=== PATIENT | male | born 1960 | race Caucasian/White ===

== ENCOUNTER 2018-10-05 00:14 | Emergency (ER) | payer MEDICARE, SELFPAY ==
[2018-10-05] VITALS (7 sets, daily range): BP systolic 107–131; BP diastolic 66–85; PULSE 82–109; RESP 16–20; TEMP 36.3–36.4; O2SAT 94–99; BMI 22.1
--- NOTE | 2018-10-05 00:49 | RAD_ITS ---
STUDY: X-RAY CHEST REASON FOR EXAM: Male, 58 years old. Cough. TECHNIQUE: PA and lateral views of the chest. COMPARISON: Prior comparison studies are not available for review at this time. FINDINGS: Cardiac monitoring leads are present. The lungs are hyperexpanded. There appear to be of bilateral heterogeneous airspace consolidations. There also may be some nodules are particularly noticeable in the right upper lobe. There is also a large right basilar pulmonary nodule measuring up to 4.3 cm in greatest dimension. The pancreas be a small left-sided pleural effusion. There appears to be bilateral apical pleural thickening. There is mild cardiac enlargement. There is prominence of left hilar area possibly representing sequela of lymphadenopathy. There is prominence of the pulmonary hilar arteries without peripheral pulmonary vascular congestion. There is atherosclerotic calcification of the aortic arch with tortuosity. There is demineralization of the osseous structures. There is increased attenuation within the lower thoracic vertebral body that could represent sequela metastatic disease. Normal visualized ribs, clavicles, and shoulders. There is moderate pectus excavatum. There is no demonstrated abnormality of the visualized soft tissue structures of the upper abdomen. RAD/Chest PA and Lateral IMPRESSION: 1. Apparent multiple right-sided pulmonary masses and nodules possibly representing primary bronchogenic carcinoma. 2. Probable hilar lymphadenopathy. 3. Patchy bilateral basilar airspace disease and/or atelectasis. Electronically Signed: Caitie Agudelo MD at 3:11 EDT , Service support ,
--- NOTE | 2018-10-05 00:50 | CT_ITS ---
STUDY: CTA OF THE ABDOMINAL AORTA AND BILATERAL LOWER EXTREMITIES REASON FOR EXAM: Male, 58 years old. Right-sided inguinal hernia. RADIATION DOSAGE (If Supplied By Facility): CTDIvol = ( 6.44 ) mGy, DLP = ( 984.57 ) mGycm TECHNIQUE: Axial CT angiography multi-detector data acquisition was obtained from the lung bases to the feet following intravenous administration of Isovue 370 100 ml. Axial images and MIP images were reconstructed from the axial data set. Post-processing of the angiographic images was performed, with multiplanar reformation and 3D reconstruction. Individualized dose optimization techniques were used for this CT. TECHNICAL QUALITY: Good COMPARISON: None. Descriptors of Narrowing: None (0%) Mild (< 50%) Moderate (50-70%) Severe (70-90%) Subtotal/Total Occlusion (90-100%) Non-Evaluable (technically non-diagnostic FINDINGS: Abdominal aorta: There is mild diffuse narrowing. Celiac and superior mesenteric arteries: Diffuse of a hemodynamically significant stenosis of the origin the celiac axis with the least 80% diameter narrowing. There is poststenotic dilatation of the celiac axis. The superior mesenteric artery is widely patent. Inferior mesenteric artery: No demonstrated narrowing. Right renal artery(arteries): No demonstrated narrowing. Left renal artery(arteries): No demonstrated narrowing. Right common iliac artery: There is mild diffuse narrowing. Right external iliac artery: There is mild diffuse narrowing. Right internal iliac artery: No demonstrated narrowing. Left common iliac artery: There is mild diffuse narrowing. Left external iliac artery: No demonstrated narrowing. Left internal iliac artery: There is mild diffuse narrowing. RIGHT LOWER EXTREMITY Right common femoral artery: There is severe diffuse narrowing. Right profundus femoris: No demonstrated narrowing. Right superficial femoral: There is moderate diffuse narrowing. Right popliteal artery: There appears to be complete thrombosis of the popliteal artery. Right tibioperoneal trunk: There is moderate diffuse narrowing. Right anterior tibial artery: There is moderate diffuse narrowing, with visualization of the vessel to the distal calf. Right posterior tibial artery: There is moderate diffuse narrowing, with visualization of the vessel to the distal calf. Right peroneal artery: There is moderate diffuse narrowing, with visualization of the vessel to the proximal calf. LEFT LOWER EXTREMITY Left common femoral artery: There is moderate diffuse narrowing. Left profundus femoris: There appears to be a severe narrowing at its origin. The left profundus femoris artery then assumes a more normal caliber. Left superficial femoral: There is moderate diffuse narrowing. There appears to be complete thrombosis of the left superficial femoral artery within the mid thigh. There is no evidence for enhancing superficial femoral artery within the mid and distal thigh. Left popliteal artery: There is severe diffuse narrowing with what appears to be complete thrombosis of the popliteal artery.. Left tibioperoneal trunk: The tibioperoneal trunk apparently is reconstituted via collaterals and has moderate narrowing. Left anterior tibial artery: Not visualized presumably related to complete occlusion. Left posterior tibial artery: Not visualized probably related to complete thrombosis. Left peroneal artery: There is moderate diffuse narrowing, with visualization of the vessel to the distal calf. The skeletal muscles of the thighs and calves are within normal limits. Visualized femurs, bony pelvis, tibias and fibulas have a normal appearance. ABDOMINAL AND PELVIC FINDINGS: There is a left-sided pleural effusion. The liver is not imaged in its entirety on this study. The visualized liver is within normal limits. Normal gallbladder and extrahepatic biliary system. The spleen is not imaged in its entirety on this study. Normal pancreas. There is a left adrenal nodule measuring approximately 1.8 cm in greatest dimension. Normal right kidney. Normal left kidney. Normal visualized stomach. There is no evidence for dilated bowel, ascites or pneumoperitoneum. The small bowel has a grossly normal appearance. Stool is visible throughout the colon with scattered diverticula. The appendix is visualized and appears normal. Normal inferior vena cava. Normal retroperitoneum. Urinary bladder is very distended. Normal visualized prostate gland. Normal abdominal wall. Normal osseous structures. CT/CTA Abd w/Runoff W/WO Contrast IMPRESSION: 1. 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 2. Hemodynamically significant stenosis of the right common femoral artery with apparent occlusion of the right popliteal artery. 3. There is moderately severe stenosis of the left common femoral artery with complete occlusion of the distal left superficial femoral artery. Only one artery is visible within the left calf and ankle. Electronically Signed: Caitie Agudelo MD at 4:06 EDT , Service support ,
[2018-10-05] MEDS: Ondansetron 4 MG/2 ML Vial IV (01:00)
[2018-10-05] MEDS: 0.9% Normal Saline 1,000 ML 1000 ML IV (01:00)
[2018-10-05] MEDS: Morphine 4 MG/ML Syringe IV (01:00)
[2018-10-05 01:19] LABS: Absolute Neutrophil Count 5.1 X10^3/uL (2.0-7.7); Basophil# 0.04 X10^3/uL; Basophil% 0.5 % (0-1); Eosinophil# 0.27 X10^3/uL; Eosinophils% 3.4 % (0-5); Hematocrit 35.2 % (40-54); Hemoglobin 11.7 g/dl (13.0-16.5); Lymphocyte % 26.3 % (19-41); Mean Corp Hgb Conc 33.2 g/gl (32-36); Mean Corpuscular Hgb 30.5 pg (27.0-32.0); Mean Corpuscular Volume 91.7 fL (80-94); Mean Platelet Vol. 9.8 fl (6.2-12.0); Monocyte# 0.44 X10^3/uL; Monocyte% 5.5 % (0-10); Platelet Count 337 K/mm3 (150-450); RBC Distribution Width CV 12.6 % (11.6-14.6); RBC Distribution Width SD 41.5 fl (35.1-43.9); Red Blood Count 3.84 M/mm3 (4.6-6.2)
[2018-10-05 01:20] LABS: POSITIVE COUNT NO; POSITIVE DIFFERENTIAL NO; POSITIVE MORPHOLOGY NO
[2018-10-05 01:31] LABS: Anion Gap 9 (5-15); BUN 7 mg/dL (7-18); Calcium,Total 8.1 mg/dL (8.5-10.1); Chloride 96 mmol/L (98-107); Creatinine, Serum 0.78 mg/dL (0.70-1.30); EST Glomerular Filtration Rate 108 mL/min (>60); Est Glom Filt Rate - Afr Amer 131 mL/min (>60); Estimated Creatinine Clearance 102.74 ml/min; Glucose 118 mg/dL (74-106); Potassium 3.2 mmol/L (3.5-5.1); Sodium Level 131 mmol/L (136-145)
[2018-10-05 01:49] LABS: Lactic Acid 1.3 mmol/L (0.4-2.0)
--- NOTE | 2018-10-05 02:06 | ED.VISSUMM ---
- ER Visit Summary Date of Service: 10/05/18 Chief Complaint: Abdominal pain and leg pain History of Present Illness: The patient is a 58 M with no primary care physician. He is a poor informant. Patient reports that he has had bilateral leg pain. States that this is chronic. Is worsened with exertion. It is gotten much worse over the past 2 weeks. States is 9 out of 10 currently 10 out of 10 at worst. Increased with standing and decreased with Vicodin. Patient reports that he has had abdominal pain this been present for the past week. States that he went to an outside hospital and was told it was a hernia. He went to [facility] yesterday to establish primary care physician. States he has been nauseated. No vomiting or diarrhea. No melena or hematochezia. Physical Examination: Vitals: Stable. Afebrile. General: Well-nourished and well-developed. Head: Normocephalic atraumatic. Neck: Supple, no lymphadenopathy. No JVD. Nontender. Cardiovascular: Regular rate and rhythm. No murmurs. Respiratory: No respiratory distress. Clear to auscultation bilaterally. Abdominal: Soft, moderate suprapubic tenderness to palpation, nondistended, normal bowel sounds. No guarding, rebound, or peritoneal signs. Back: Nontender. Extremities: Severe tenderness to palpation over his legs bilaterally in a stocking distribution. There is 3-4-second capillary refill. There is no palpable dorsalis pedis or posterior tibial pulses bilaterally. I am unable to Doppler pulses in these regions either. He does have 1+ femoral pulse bilaterally. no edema. Skin: Normal color, no rash. Neurologic: Alert and oriented ?3. Cranial nerves II through XII are intact. Normal strength and sensation. Psych: Normal affect. Test Results: CBC shows an H&H 11.7 and 35.2. Chem-7 shows a sodium 131, potassium 3.2, chloride 96, glucose 118, calcium 8.1. Lactic acid is 1.3. Clinical Impression(s) from Imaging Studies Chest X-Ray 10/05/18 00:49 IMPRESSION: 1. Apparent multiple right-sided pulmonary masses and nodules possibly representing primary bronchogenic carcinoma. 2. Probable hilar lymphadenopathy. 3. Patchy bilateral basilar airspace disease and/or atelectasis. Electronically Signed: Caitie Agudelo MD at 3:11 EDT , Service support , Abdomen/Pelvis CTA 10/05/18 00:50 IMPRESSION: 1. 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 2. Hemodynamically significant stenosis of the right common femoral artery with apparent occlusion of the right popliteal artery. 3. There is moderately severe stenosis of the left common femoral artery with complete occlusion of the distal left superficial femoral artery. Only one artery is visible within the left calf and ankle. Electronically Signed: Caitie Agudelo MD at 4:06 EDT , Service support , Emergency Department Course and Treatment: Patient reports that he already knew about these pulmonary masses and had seen Dr. Flores approximately 4 years ago for these. It sounds as though he had a needle biopsy, an open biopsy, and a bronchial alveolar lavage without an absolute diagnosis. He states he was supposed to follow-up every 6 months. He has not seen him for the past 4 years. Patient was started on a heparin drip. He was given morphine and Zofran IV. He is resting comfortably. Treatment Plan: This time the patient clearly has chronic peripheral arterial disease. However, he has clotted off his popliteal arteries bilaterally. There is also narrowing of the celiac artery. I feel that he needs further evaluation for his lung masses. He was discussed with [facility]. They do not have beds. He was discussed with Dr. Holm, a vascualr surgeon, and Dr. Monroy, an internal medicine doctor, at [facility] and will be transferred there for further evaluation and treatment. Disposition: Transferred in serious condition. Impression: 1. Bilateral popliteal thrombus. 2. Chronic peripheral arterial disease. 3. Pulmonary masses. 4. Critical care time 30 minutes. This note was generated with Sellig[employer]ation software. It may contain incorrect words, spelling, and punctuation that were not noted in review of the chart prior to signing ED Disposition - Plan for ED Patient: Referrals: Duc Tejada MD [Primary Care Provider] -
--- NOTE | 2018-10-05 02:09 | ED.DCSUM_ITS ---
- ER Visit Summary Date of Service: 10/05/18 Chief Complaint: Abdominal pain and leg pain History of Present Illness: The patient is a 58 M with no primary care physician. He is a poor informant. Patient reports that he has had bilateral leg pain. States that this is chronic. Is worsened with exertion. It is gotten much worse over the past 2 weeks. States is 9 out of 10 currently 10 out of 10 at worst. Increased with standing and decreased with Vicodin. Patient reports that he has had abdominal pain this been present for the past week. States that he went to an outside hospital and was told it was a hernia. He went to [facility] yesterday to establish primary care physician. States he has been nauseated. No vomiting or diarrhea. No melena or hematochezia. Physical Examination: Vitals: Stable. Afebrile. General: Well-nourished and well-developed. Head: Normocephalic atraumatic. Neck: Supple, no lymphadenopathy. No JVD. Nontender. Cardiovascular: Regular rate and rhythm. No murmurs. Respiratory: No respiratory distress. Clear to auscultation bilaterally. Abdominal: Soft, moderate suprapubic tenderness to palpation, nondistended, normal bowel sounds. No guarding, rebound, or peritoneal signs. Back: Nontender. Extremities: Severe tenderness to palpation over his legs bilaterally in a stocking distribution. There is 3-4-second capillary refill. There is no palpable dorsalis pedis or posterior tibial pulses bilaterally. I am unable to Doppler pulses in these regions either. He does have 1+ femoral pulse bilaterally. no edema. Skin: Normal color, no rash. Neurologic: Alert and oriented ?3. Cranial nerves II through XII are intact. Normal strength and sensation. Psych: Normal affect. Test Results: CBC shows an H&H 11.7 and 35.2. Chem-7 shows a sodium 131, potassium 3.2, chloride 96, glucose 118, calcium 8.1. Lactic acid is 1.3. Clinical Impression(s) from Imaging Studies Chest X-Ray 10/05/18 00:49 IMPRESSION: 1. Apparent multiple right-sided pulmonary masses and nodules possibly representing primary bronchogenic carcinoma. 2. Probable hilar lymphadenopathy. 3. Patchy bilateral basilar airspace disease and/or atelectasis. Electronically Signed: Caitie Agudelo MD at 3:11 EDT , Service support , Abdomen/Pelvis CTA 10/05/18 00:50 IMPRESSION: 1. 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 2. Hemodynamically significant stenosis of the right common femoral artery with apparent occlusion of the right popliteal artery. 3. There is moderately severe stenosis of the left common femoral artery with complete occlusion of the distal left superficial femoral artery. Only one artery is visible within the left calf and ankle. Electronically Signed: Caitie Agudelo MD at 4:06 EDT , Service support , Emergency Department Course and Treatment: Patient reports that he already knew about these pulmonary masses and had seen Dr. Flores approximately 4 years ago for these. It sounds as though he had a needle biopsy, an open biopsy, and a bronchial alveolar lavage without an absolute diagnosis. He states he was supposed to follow-up every 6 months. He has not seen him for the past 4 years. Patient was started on a heparin drip. He was given morphine and Zofran IV. He is resting comfortably. Treatment Plan: This time the patient clearly has chronic peripheral arterial disease. However, he has clotted off his popliteal arteries bilaterally. There is also narrowing of the celiac artery. I feel that he needs further evaluation for his lung masses. He was discussed with [facility]. They do not have beds. He was discussed with Dr. Holm, a vascualr surgeon, and Dr. Monroy, an internal medicine doctor, at [facility] and will be transferred there for further evaluation and treatment. Disposition: Transferred in serious condition. Impression: 1. Bilateral popliteal thrombus. 2. Chronic peripheral arterial disease. 3. Pulmonary masses. 4. Critical care time 30 minutes. This note was generated with Kaseya[employer] software. It may contain incorrect words, spelling, and punctuation that were not noted in review of the chart prior to signing ED Disposition - Plan for ED Patient: Referrals: Duc Tejada MD [Primary Care Provider] -
[2018-10-05] MEDS: HEPARIN/D5w 25,000 UNITS 25,000 UNITS/250 ML IV.SOLN. 11 UNITS IV (05:59)
[2018-10-05] MEDS: Heparin Injection (Vial) 5,000 UNIT/ML VIAL 5000 UNIT IV (06:00)
--- NOTE | 2018-10-05 09:25 | NURSING ---
[facility] 18 REPORT [phone]
--- NOTE | 2018-10-05 09:34 | NURSING ---
CALLED [facility]. CREW COMING FROM [facility]
--- NOTE | 2018-10-05 09:48 | ED.RN ---
ATTEMPTED TO CALL REPORT. THEY WILL CALL BACK
== END 2018-10-05 10:33 | disposition short-term general hospital (02) ==
LOC: ED 01:07
PROVIDERS: Emergency Provider Emergency Medicine; Family Provider Family Medicine; PCP Family Medicine
DX: I82.433 Acute embolism and thrombosis of popliteal vein, bilateral (principal); I73.9 Peripheral vascular disease, unspecified; R91.8 Other nonspecific abnormal finding of lung field; G89.29 Other chronic pain; J44.9 Chronic obstructive pulmonary disease, unspecified; Z72.0 Tobacco use
CPT/HCPCS: 71046; 75635; 80048; 83605; 85025; 96361; 96374; 96375; 99285; J7030; Q9967; A4216; J2405